=== PATIENT | male | born 1990 | race Caucasian/White ===

== ENCOUNTER 2023-12-10 21:30 | Emergency (ER) | payer BC ==
[~2023-12-10] VITALS: Ht 368.3 cm; Wt 120.2 kg
[2023-12-10 21:30] VITALS: PULSE 81; RESP 18; TEMP 97.1
[~2023-12-10 21:30] MED LIST: ACETAMINOPHEN325 M1 PO; CIPROFLOXACIN500 MG PO; METRONIDAZOLE500 MG PO; ONDANSETRON ODT4 MG PO
[2023-12-10] MEDS: SODIUM CHLORIDE 0.9% 1000ML 1,000 ML IV ONE (22:27)
[2023-12-10] MEDS ORDERED: FIORICET 50-301 EACH PO (23:34)
[2023-12-10] MEDS ORDERED: ONDANSETRON ODT4 MG SL (23:34)
[2023-12-10] MEDS: ACETAMIN/BUTALBITAL/CAFFEINE TAB PO ONE (23:59)
[2023-12-11] MEDS: ONDANSETRON HCL INJ 2MG/ML 2ML 2 MG/ML VIAL IV STA
[2023-12-11] MEDS: KETOROLAC TROMETHAMINE 30 MG/ML VIAL IV STA
[2023-12-11] MEDS: DIPHENHYDRAMINE HCL INJ 50 MG/ML VIAL IV ONE
[2023-12-11] MEDS: METOCLOPRAMIDE HCL 10 MG/2ML VIAL IV ONE (00:03)
[2023-12-11 01:17] VITALS: BP 154/73; PULSE 79; RESP 18; TEMP 98.3; O2SAT 100
== END 2023-12-11 00:53 | disposition home or self-care (01) ==
LOC: ER 21:38
DX: G43.909 Migraine, unspecified, not intractable, without status migrainosus (principal); E78.5 Hyperlipidemia, unspecified; Z11.52 Encounter for screening for COVID-19
CPT/HCPCS: 70450; 99284; J1200; J1885; J2405; J2765; J7030; U0002